=== PATIENT | male | born 1985 | race Two or more races ===

== ENCOUNTER 2017-12-27 11:41 | Inpatient (IN) | payer MEDICAID, OTHER ==
[~2017-12-27] VITALS: Ht 152.4 cm; Wt 58.3 kg
[2017-12-27] VITALS (12 sets, daily range): BP systolic 96–110; BP diastolic 46–62
[2017-12-27 16:07] LABS: Basophils # (auto) 0 uL; Basophils % (auto) 0.6 % (0.0-2.0); Eosinophils # (auto) 0.1 uL; Lymphocytes # (auto) 1.9 uL; Monocytes # (auto) 0.5 uL; Red Cell Distribution Width 18.2 % (11.8-14.3); White Blood Cell 5.9 10^3/uL (4.4-10.8)
[2017-12-27 16:09] LABS: Lymphocytes % (auto) 32.4 % (10.0-50.0); Mean Corpuscular Hemoglobin 36.8 pg (28.0-32.0); Mean Corpuscular Hgb Conc. 35.5 g/dL (32.0-36.0); Mean Corpuscular Volume 103.6 fL (80.0-100.0); Monocytes % (auto) 8.2 % (0.0-12.0); Neutrophils # (auto) 3.3 uL; Neutrophils % (auto) 56.8 % (37.0-80.0); Nucleated Red Blood Cells % 0.1 %; Platelet Count (auto) 348 10^3/uL (140-450); Red Blood Cells 1.74 10^6/uL (4.5-5.90)
[2017-12-27 16:21] LABS: Hemoglobin 6.4 g/dL (13.5-17.5)
[2017-12-27 16:22] LABS: % Iron Saturation 94.2 % (20-55)
[2017-12-27 16:32] LABS: Albumin 4.4 g/dL (3.4-5.0); BUN/Creatinine Ratio 15.2; Bilirubin, Total 0.4 mg/dL (0.2-1.0); Calcium 8.6 mg/dL (8.5-10.1)
[2017-12-27 16:49] LABS: Partial Thromboplastin Time 25.5 sec (22.64-33.71); Prothrombin Time 10.9 sec (9.37-12.3)
[2017-12-27] MEDS ORDERED: DOCUSATE SOD 100 MG CAP PO PRN (19:00)
[2017-12-27] MEDS ORDERED: ACETAMINOPHEN 325 MG TAB PO PRN (19:00)
[2017-12-27] MEDS ORDERED: MORPHINE SULFATE 4 MG/ML SYR/VIAL IV PRN ×2 (19:00)
[2017-12-27] MEDS ORDERED: ONDANSETRON HCL 4 MG/2 ML VIAL IV PRN (19:00)
[2017-12-27] MEDS ORDERED: NITROGLYCERIN 0.4 MG SL TAB SL PRN (19:00)
[2017-12-27] MEDS ORDERED: HYDROcodone-ACET 5/325MG TAB PO PRN (19:00)
[2017-12-27] MEDS ORDERED: TEMAZEPAM 15 MG CAP PO PRN (19:00)
[2017-12-27] MEDS: SODIUM CHLORIDE 0.9% 1,000 ML IV SCH (19:59)
[2017-12-27] MEDS: FAMOTIDINE 20 MG TAB PO SCH (22:43)
[2017-12-28] VITALS (7 sets, daily range): BP systolic 91–106; BP diastolic 49–60
[2017-12-28 00:43] LABS: Urine Bacteria NONE SEEN /hpf (None Seen); Urine Blood Negative /uL (Negative); Urine Mucus FEW (None Seen); Urine Specific Gravity 1.026 (1.001-1.035); Urine WBC 3 /hpf (0 - 3)
[2017-12-28 05:51] LABS: Basophils # (auto) 0 uL; Lymphocytes # (auto) 1.4 uL; Nucleated Red Blood Cells % 0.1 %
[2017-12-28 05:54] LABS: Basophils % (auto) 0.3 % (0.0-2.0); Eosinophils # (auto) 0.2 uL; Eosinophils % (auto) 3.2 % (0.0-7.0); Hemoglobin 7.8 g/dL (13.5-17.5); Lymphocytes % (auto) 24.8 % (10.0-50.0); Mean Corpuscular Hemoglobin 34.6 pg (28.0-32.0); Mean Corpuscular Hgb Conc. 35.3 g/dL (32.0-36.0); Monocytes # (auto) 0.5 uL; Monocytes % (auto) 9.2 % (0.0-12.0); Neutrophils # (auto) 3.5 uL; Neutrophils % (auto) 62.5 % (37.0-80.0); Platelet Count (auto) 256 10^3/uL (140-450); Red Blood Cells 2.24 10^6/uL (4.5-5.90); Red Cell Distribution Width 19.7 % (11.8-14.3); White Blood Cell 5.6 10^3/uL (4.4-10.8)
[2017-12-28 06:02] LABS: Albumin 3.5 g/dL (3.4-5.0); BUN/Creatinine Ratio 17.3; Calcium 7.8 mg/dL (8.5-10.1); Potassium 4.5 mmol/L (3.5-5.1)
[2017-12-28 06:04] LABS: Bilirubin, Total 0.4 mg/dL (0.2-1.0); Total Protein 6.1 g/dL (6.4-8.2)
[2017-12-28] MEDS: FAMOTIDINE 20 MG TAB PO SCH ×2 (10:26→17:34)
[2017-12-28] MEDS: MULTIPLE VITAMIN TAB PO SCH (10:26)
[2017-12-28] MEDS: SODIUM CHLORIDE 0.9% 1,000 ML IV SCH (11:34)
[2017-12-29] MEDS: SODIUM CHLORIDE 0.9% 1,000 ML IV SCH (03:55)
[2017-12-29 05:00] VITALS: BP 90/50
[2017-12-29 08:53] VITALS: BP 101/61
[2017-12-29] MEDS: MULTIPLE VITAMIN TAB PO SCH (09:33)
[2017-12-29] MEDS: FAMOTIDINE 20 MG TAB PO SCH (09:33)
[2017-12-29 12:26] VITALS: BP 149/96
[2017-12-29 15:00] LABS: Hemoglobin 8.1 g/dL (13.5-17.5)
[2017-12-29 15:01] LABS: Hematocrit 22.5 % (41.0-53.0)
[2017-12-29] MEDS ORDERED: PANT40TA2 PO (15:36)
[2017-12-29] MEDS ORDERED: predniSONE 20 MG TAB PO ONE (15:45)
[2017-12-29 16:21] VITALS: BP 106/57
[2017-12-29 16:46] VITALS: BP 106/57
== END 2017-12-29 17:40 | disposition home or self-care (01) | DRG 812 ==
LOC: ER 11:41 → TELE 11:42 → TELE-WESTW 22:00
PROVIDERS: ADMIT Internal Medicine; ATTEND Internal Medicine
PROC: 30233N1 Transfusion of Nonautologous Red Blood Cells into Peripheral Vein, Percutaneous Approach (ICD-10-PCS; principal; 2017-12-27)
DX: D64.9 Anemia, unspecified (principal); E83.111 Hemochromatosis due to repeated red blood cell transfusions; D61.01 Constitutional (pure) red blood cell aplasia; R51 Headache; Z83.3 Family history of diabetes mellitus; Z88.6 Allergy status to analgesic agent
CPT/HCPCS: 36415; 36430; 70450; 80053; 81001; 83540; 83550; 85014; 85018; 85025; 85610; 85730; 86850; 86900; 86901; 86920

== ENCOUNTER → 2018-01-12 | Outpatient (CLI) | payer MEDICAID ==
[~2018-01-12] MED LIST: PANT40TA2 PO
[2018-01-12 14:30] LABS: Basophils # (auto) 0 uL; Basophils % (auto) 0.4 % (0.0-2.0); Eosinophils # (auto) 0.1 uL; Monocytes # (auto) 0.6 uL; Monocytes % (auto) 8.7 % (0.0-12.0); Neutrophils # (auto) 4.4 uL; Nucleated Red Blood Cells % 0.1 %
[2018-01-12 14:34] LABS: Eosinophils % (auto) 0.8 % (0.0-7.0); Hematocrit 33.7 % (41.0-53.0); Hemoglobin 11.5 g/dL (13.5-17.5); Mean Corpuscular Hemoglobin 35.4 pg (28.0-32.0); Mean Corpuscular Hgb Conc. 34.3 g/dL (32.0-36.0); Mean Corpuscular Volume 103.4 fL (80.0-100.0); Neutrophils % (auto) 62.1 % (37.0-80.0); Platelet Count (auto) 336 10^3/uL (140-450); Red Blood Cells 3.26 10^6/uL (4.5-5.90); Red Cell Distribution Width 24.2 % (11.8-14.3); White Blood Cell 7.1 10^3/uL (4.4-10.8)
[2018-01-12 14:50] LABS: Albumin 4.7 g/dL (3.4-5.0); BUN/Creatinine Ratio 13.3; Bilirubin, Total 0.7 mg/dL (0.2-1.0); Potassium 4.4 mmol/L (3.5-5.1); Total Protein 8.2 g/dL (6.4-8.2)
== END | disposition home or self-care (01) ==
LOC: LAB 14:12
DX: D64.9 Anemia, unspecified (principal)
CPT/HCPCS: 36415; 80053; 83540; 85025

== ENCOUNTER 2018-02-09 14:56 | Emergency (ER) | payer MEDICAID ==
[~2018-02-09] VITALS: Ht 167.6 cm; Wt 59.0 kg
[2018-02-09 16:14] LABS: Basophils # (auto) 0 uL; Basophils % (auto) 0.3 % (0.0-2.0); Eosinophils # (auto) 0.1 uL; Eosinophils % (auto) 1.3 % (0.0-7.0); Hemoglobin 7.3 g/dL (13.5-17.5); Monocytes # (auto) 0.6 uL; Monocytes % (auto) 10.3 % (0.0-12.0); Neutrophils # (auto) 3.2 uL; Red Blood Cells 2.05 10^6/uL (4.5-5.90); White Blood Cell 5.6 10^3/uL (4.4-10.8)
[2018-02-09 16:16] LABS: Lymphocytes # (auto) 1.8 uL; Lymphocytes % (auto) 31.5 % (10.0-50.0); Mean Corpuscular Hemoglobin 35.4 pg (28.0-32.0); Mean Corpuscular Hgb Conc. 36.4 g/dL (32.0-36.0); Mean Corpuscular Volume 97.3 fL (80.0-100.0); Neutrophils % (auto) 56.6 % (37.0-80.0); Nucleated Red Blood Cells % 0.1 %; Platelet Count (auto) 360 10^3/uL (140-450)
[2018-02-09 16:26] LABS: Albumin 4.5 g/dL (3.4-5.0); BUN/Creatinine Ratio 12.2; Bilirubin, Total 0.5 mg/dL (0.2-1.0); Calcium 8.3 mg/dL (8.5-10.1); Potassium 3.8 mmol/L (3.5-5.1); Total Protein 7.7 g/dL (6.4-8.2)
[2018-02-09 16:35] LABS: INR 1.05 (0.9-1.15); Partial Thromboplastin Time 26.8 sec (22.64-33.71); Prothrombin Time 11.4 sec (9.37-12.3)
[2018-02-10 08:50] VITALS: BP 104/64
== END 2018-02-10 09:05 | disposition home or self-care (01) ==
LOC: ER 15:04
DX: D64.9 Anemia, unspecified (principal); R53.83 Other fatigue; Z79.899 Other long term (current) drug therapy
CPT/HCPCS: 36415; 80053; 85025; 85610; 85730; 86850; 86900; 86901

== ENCOUNTER 2018-02-16 10:59 | Emergency (ER) | payer MEDICAID ==
[~2018-02-16] VITALS: Ht 167.6 cm; Wt 58.5 kg
[2018-02-16 11:39] VITALS: BP 109/64
[2018-02-16 12:14] LABS: Basophils # (auto) 0 uL; Basophils % (auto) 0.1 % (0.0-2.0); Eosinophils # (auto) 0 uL; Hemoglobin 7.4 g/dL (13.5-17.5); Lymphocytes # (auto) 0.8 uL; Monocytes # (auto) 0.2 uL
[2018-02-16 12:16] LABS: Hematocrit 21.2 % (41.0-53.0); Lymphocytes % (auto) 8.7 % (10.0-50.0); Mean Corpuscular Hemoglobin 34.8 pg (28.0-32.0); Mean Corpuscular Hgb Conc. 34.7 g/dL (32.0-36.0); Mean Corpuscular Volume 100.2 fL (80.0-100.0); Neutrophils # (auto) 7.8 uL; Neutrophils % (auto) 89.2 % (37.0-80.0); Platelet Count (auto) 392 10^3/uL (140-450); Red Blood Cells 2.12 10^6/uL (4.5-5.90); White Blood Cell 8.8 10^3/uL (4.4-10.8)
[2018-02-16 12:26] LABS: Red Cell Distribution Width 20.1 % (11.8-14.3)
[2018-02-16 12:49] LABS: Albumin 4.6 g/dL (3.4-5.0); Bilirubin, Total 0.5 mg/dL (0.2-1.0); Calcium 9.2 mg/dL (8.5-10.1); Total Protein 8.2 g/dL (6.4-8.2)
[2018-02-16 15:09] LABS: Urine WBC None Seen /hpf (0 - 3)
[2018-02-16 15:27] LABS: Urine Bacteria NONE SEEN /hpf (None Seen); Urine Blood Negative /uL (Negative); Urine Specific Gravity 1.003 (1.001-1.035)
== END 2018-02-16 15:19 | disposition left against medical advice (07) ==
LOC: ER 10:59
DX: R10.9 Unspecified abdominal pain (principal); Z53.21 Procedure and treatment not carried out due to patient leaving prior to being seen by health care provider
CPT/HCPCS: 36415; 80053; 81001; 85025; 86850; 86900; 86901; 93005

== ENCOUNTER 2023-04-07 12:32 | Emergency (ER) | payer MEDICAID ==
[~2023-04-07] VITALS: Ht 167.6 cm; Wt 130.0 kg
[2023-04-07] MEDS ORDERED: LIDOCAINE 1% HCL (LOCAL ANESTH.) INJ 20ML MDV ID ONE (13:15)
[2023-04-07] MEDS ORDERED: HYDROcodone-ACET 5/325MG TAB PO ONE (13:15)
[2023-04-07] MEDS ORDERED: CLINDAMYCIN HCL 150 MG CAP PO ONE (13:15)
[2023-04-07 13:31] VITALS: BP 137/87
[2023-04-07] MEDS ORDERED: CEPH500C PO (13:50)
[2023-04-07] MEDS ORDERED: BACDST PO (13:50)
== END 2023-04-07 14:02 | disposition home or self-care (01) ==
LOC: ER 12:32
DX: L02.212 Cutaneous abscess of back [any part, except buttock and flank] (principal)
CPT/HCPCS: 10060; 99283; C1887; J2001

== ENCOUNTER 2023-04-09 11:17 | Emergency (ER) | payer MEDICAID ==
[~2023-04-09] VITALS: Ht 167.6 cm; Wt 57.6 kg
[~2023-04-09 11:17] MED LIST changes: +BACDST PO; +CEPH500C PO
[2023-04-09 12:01] VITALS: BP 124/71
== END 2023-04-09 12:35 | disposition home or self-care (01) ==
LOC: ER 11:17
DX: L02.212 Cutaneous abscess of back [any part, except buttock and flank] (principal); Z79.899 Other long term (current) drug therapy